=== PATIENT | male | born 1985 | race Caucasian/White ===

== ENCOUNTER 2024-04-07 13:28 | Emergency (ER) | payer OTHER | END 2024-04-07 14:25 | disposition home or self-care (01) | LOC: KA.ED 13:28 | DX: M25.562 Pain in left knee (principal); M25.532 Pain in left wrist; M25.521 Pain in right elbow; Z88.2 Allergy status to sulfonamides; W31.89XA Contact with other specified machinery, initial encounter; Y99.0 Civilian activity done for income or pay | CPT/HCPCS: 73070-RT; 73100-LT; 73560-LT; 99283 ==